=== PATIENT | female | born 1995 | race Caucasian/White ===

== ENCOUNTER 2017-03-05 23:57 | Emergency (ER) | payer BC, MEDICAID ==
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
[2017-03-06 01:30] VITALS: BP 129/89
== END 2017-03-06 02:20 | disposition home or self-care (01) ==
LOC: JD.ED 23:57
DX: F10.920 Alcohol use, unspecified with intoxication, uncomplicated (principal); Z79.899 Other long term (current) drug therapy; Y90.1 Blood alcohol level of 20-39 mg/100 ml
CPT/HCPCS: 36415; 80048; 80306; 81025; 99284; G0480; 99282

== ENCOUNTER 2019-02-11 21:13 | Emergency (ER) | payer MEDICAID, OTHER ==
[2019-02-11 21:32] VITALS: BP 110/79
[2019-02-11] MEDS ORDERED: Sodium Chloride 0.9% 10 ML Syringe FLUSH PRN (22:15)
[2019-02-11] MEDS ORDERED: Ketorolac 30 MG/ML SDV IVPUSH ONE (22:15)
[2019-02-11] MEDS ORDERED: Ondansetron 4 MG/2 ML SDV IVPUSH ONE (22:15)
[2019-02-11] MEDS ORDERED: Sodium Chloride 0.9% 1,000 ML IV ONE ×2 (22:18→23:39)
--- NOTE | 2019-02-11 23:10 | EDM.PDOC ---
ED HPI GENERAL MEDICAL PROBLEM - General Chief Complaint: Gastrointestinal Problem Stated Complaint: VOMITING Time Seen by Provider: 02/11/19 21:55 Source of Information: Reports: Patient History Limitations: Reports: No Limitations - History of Present Illness INITIAL COMMENTS - FREE TEXT/NARRATIVE: 23-year-old female presents for evaluation and treatment of vomiting. Reports that vomiting started today around noon. Reports she's not any diarrhea but did have 3 bowel movements that were looser today. No blood in her stool. She states that anything she eats or drinks causes severe cramping abdominal discomfort and then causes vomiting. She is fevers, diarrhea or any blood in her stool. She has tried Tylenol without any relief. She also reports a headache approximately front forehead. She denies any urinary symptoms. Patient reports that she ate at a club last night for a steak lyles. She states that her steak was very rare. She questions if this caused her symptoms today. Denies any recent antibiotic usage. Denies any recent travel. No ill contacts. Onset: Today Abdomen Pain Score (Numeric/FACES): 6 - Related Data Allergies Allergy/AdvReac Type Severity Reaction Status Date / Time No Known Allergies Allergy Verified 03/06/17 00:38 Home Meds: Home Meds Cetirizine HCl [Zyrtec] 10 mg PO DAILY 02/11/19 [History] Desog-E.Estradiol/E.Estradiol [Pimtrea 28 Day Tablet] 1 tab PO DAILY 02/11/19 [ History] Past Medical History - Past Health History Medical/Surgical History: Denies Medical/Surgical History HEENT History: Reports: Allergic Rhinitis Other Musculoskeletal History: "dislocated growth plate" in R) arm as child. Social & Family History - Tobacco Use Smoking Status *Q: Never Smoker - Caffeine Use Caffeine Use: Reports: Coffee - Recreational Drug Use Recreational Drug Use: No - Living Situation & Occupation Living situation: Reports: with Family Occupation: Student ED ROS GENERAL - Review of Systems Review Of Systems: See Below Constitutional: Denies: Fever, Chills GI/Abdominal: Reports: Abdominal Pain, Nausea, Vomiting. Denies: Bloody Stool, Diarrhea : Reports: No Symptoms. Denies: Dysuria Neurological: Reports: Headache ED EXAM, GI/ABD - Physical Exam Exam: See Below Exam Limited By: No Limitations General Appearance: Alert, WD/WN, No Apparent Distress Nose: Normal Inspection Throat/Mouth: Normal Inspection, Normal Voice, No Airway Compromise Neck: Normal Inspection Respiratory/Chest: No Respiratory Distress, Lungs Clear, Normal Breath Sounds Cardiovascular: Normal Peripheral Pulses, Regular Rate, Rhythm, No Murmur GI/Abdominal Exam: Soft, Non-Tender, Abnormal Bowel Sounds (hyperactive) Neurological: Alert, Oriented, Normal Cognition Psychiatric: Normal Affect, Normal Mood Skin Exam: Warm, Dry, Normal Color Course - Vital Signs Last Recorded V/S: Last Vital Signs Temp 98.4 F 02/11/19 21:30 Pulse 61 02/11/19 21:30 Resp 20 02/11/19 21:30 BP 110/79 02/11/19 21:30 Pulse Ox 98 02/11/19 21:30 Orthostatic Blood Pressure [ 112/92 Standing] Orthostatic Blood Pressure [ 114/81 Sitting] Orthostatic Blood Pressure [ 111/71 Supine] - Orders/Labs/Meds Labs: Laboratory Tests 02/11/19 02/11/19 Range/Units 22:30 22:30 WBC 9.98 (3.98-10.04) K/mm3 RBC 4.67 (3.98-5.22) M/mm3 Hgb 14.2 (11.2-15.7) gm/L Hct 41.5 (34.1-44.9) % MCV 88.9 (79.4-94.8) fl MCH 30.4 (25.6-32.2) pg MCHC 34.2 (32.2-35.5) g/dl RDW Std Deviation 41.2 (36.4-46.3) fL Plt Count 281 (182-369) K/mm3 MPV 9.2 L (9.4-12.3) fl Neutrophils % (Manual) 72 H (40-60) % Band Neutrophils % 0 (0-10) % Lymphocytes % (Manual) 22 (20-40) % Atypical Lymphs % 0 % Monocytes % (Manual) 5 (2-10) % Eosinophils % (Manual) 1 (0.7-5.8) % Basophils % (Manual) 0 L (0.1-1.2) Toxic Granulation 1+ slight Platelet Estimate Adequate Plt Morphology Comment Normal RBC Morph Comment Normal Sodium 139 (136-145) mEq/L Potassium 3.8 (3.5-5.1) mEq/L Chloride 103 (98-107) mEq/L Carbon Dioxide 27 (21-32) mEq/L Anion Gap 12.8 (5-15) BUN 15 (7-18) mg/dL Creatinine 0.8 (0.55-1.02) mg/dL Est Cr Clr Drug Dosing 96.06 mL/min Estimated GFR (MDRD) > 60 (>60) mL/min BUN/Creatinine Ratio 18.8 H (14-18) Glucose 82 (74-106) mg/dL Calcium 9.4 (8.5-10.1) mg/dL Magnesium 2.0 (1.8-2.4) mg/dl Total Bilirubin 0.5 (0.2-1.0) mg/dL AST 27 (15-37) U/L ALT 32 (14-59) U/L Alkaline Phosphatase 72 (46-116) U/L C-Reactive Protein < 0.2 (<1.0) mg/dL Total Protein 7.5 (6.4-8.2) g/dl Albumin 3.8 (3.4-5.0) g/dl Globulin 3.7 gm/dL Albumin/Globulin Ratio 1.0 (1-2) Meds: Medications Discontinued Medications Generic Name Dose Route Start Last Admin Trade Name Freq PRN Reason Stop Dose Admin Acetaminophen/Butalbital/Caffeine 1 tab 02/11/19 23:39 02/11/19 23:49 Fioricet 325-50-40 Mg PO 02/11/19 23:40 1 tab ONETIME ONE Administration Sodium Chloride 1,000 mls @ 999 mls/hr 02/11/19 22:18 02/11/19 22:32 Normal Saline IV 02/11/19 23:18 999 mls/hr ONETIME ONE Administration Sodium Chloride 1,000 mls @ 999 mls/hr 02/11/19 23:39 02/11/19 23:49 Normal Saline IV 02/12/19 00:39 999 mls/hr ONETIME ONE Administration Ketorolac Tromethamine 30 mg 02/11/19 22:15 02/11/19 22:32 Toradol IVPUSH 02/11/19 22:16 30 mg ONETIME ONE Administration Ondansetron HCl 4 mg 02/11/19 22:15 02/11/19 22:32 Zofran IVPUSH 02/11/19 22:16 4 mg ONETIME ONE Administration Sodium Chloride 10 ml 02/11/19 22:15 02/11/19 22:32 Saline Flush FLUSH 10 ml ASDIRECTED PRN Administration Keep Vein Open - Re-Assessments/Exams Free Text/Narrative Re-Assessment/Exam: 02/12/19 00:08 Reviewed the labs with the patient. Nausea under control and no vomiting since entering the ER. Headache continued despite Toradol. Fioricet ordered and this is giving her adequate relief. Will discharge home at this time. Discharge instructions as documented. Departure - Departure Time of Disposition: 00:16 Disposition: Home, Self-Care 01 Condition: Good Clinical Impression: Viral gastroenteritis, Vomiting - Discharge Information *PRESCRIPTION DRUG MONITORING PROGRAM REVIEWED*: No *COPY OF PRESCRIPTION DRUG MONITORING REPORT IN PATIENT BEATRIZ: No Instructions: Viral Gastroenteritis, Adult, [id number], Vomiting, Adult Referrals: Zay Davis MD [Primary Care Provider] - Forms: ED Department Discharge Additional Instructions: Prescription for Zofran 4 mg sublingual tabs written and dispensed from [email or web address] Take Zofran as prescribed. 1 tab every 6-8 hours as needed for nausea. Recommend clear fluids and bland foods as tolerated. [place] diet recommendations include bread, soup broth, rice, applesauce, etc. Follow-up with your primary care provider in one week if not much better. Recommend a probiotic, these are available OTC. Please return to ER if your symptoms change or worsen.
[2019-02-11] MEDS ORDERED: Acetaminophen/Butalbital/Caffeine 325-50-40 MG Tab PO ONE (23:39)
== END 2019-02-12 00:25 | disposition home or self-care (01) ==
LOC: JD.ED 21:13
DX: A08.4 Viral intestinal infection, unspecified (principal)
CPT/HCPCS: 36415; 80053; 83735; 85007; 85027; 86140; 96361; 96374; 96375; 99284; A9270; J1885; J2405; J7040